=== PATIENT | female | born 1960 | race Caucasian/White ===

== ENCOUNTER 2021-03-15 10:56 | Emergency (ER) | payer OTHER ==
[~2021-03-15 10:56] MED LIST: BACTRIM DS TAB1 EACH PO; CENTRUM SILVER1 EAC1 PO; CYMBALTA 30MG C30 MG PO; CYMBALTA20 M1 PO; D-AMPHETAMINE PO; FOLIC ACID1 MG PO; INDERAL20 MG PO; LEVSIN-SL0.125 MG SL; PERCOCET 5-3251 EACH PO; PRINIVIL10 MG PO; PROTONIX 40MG T40 MG PO; PROZAC20 MG PO; ZANTAC150 MG PO
[2021-03-15] MEDS ORDERED: NORCO 5-325 TA1 EACH PO (11:46)
[2021-03-15] MEDS ORDERED: CEPHALEXIN500 MG PO (11:46)
[2021-03-15] MEDS ORDERED: BACTROBAN NASAL1 GM TOP (11:46)
[2021-03-16] MEDS ORDERED: BUPROPION XL300 MG PO (14:27)
[2021-03-16] MEDS ORDERED: DULOXETINE HCL60 MG PO (14:27)
[2021-03-20] MEDS ORDERED: PERCOCET 5-3251 EACH PO (06:57)
== END 2021-03-15 12:10 | disposition home or self-care (01) ==
LOC: FER 10:56
DX: S61.412A Laceration without foreign body of left hand, initial encounter (principal); I10 Essential (primary) hypertension; K21.9 Gastro-esophageal reflux disease without esophagitis; Z23 Encounter for immunization; Z79.899 Other long term (current) drug therapy; W26.0XXA Contact with knife, initial encounter; Y92.009 Unspecified place in unspecified non-institutional (private) residence as the place of occurrence of the external cause
CPT/HCPCS: 90471; 90715

== ENCOUNTER → 2021-03-20 | Day surgery (SDC) | payer OTHER ==
[~2021-03-20] VITALS: Ht 152.4 cm; Wt 57.8 kg
[~2021-03-20] MED LIST changes: +BACTROBAN NASAL1 GM TOP; +BUPROPION XL300 MG PO; +CEPHALEXIN500 MG PO; +DULOXETINE HCL60 MG PO; +NORCO 5-325 TA1 EACH PO
[2021-03-20 11:26] LABS: CREATININE 0.8 mg/dL (0.51-0.95); POTASSIUM 4.8 mmol/L (3.5-5.1)
== END | disposition home or self-care (01) ==
LOC: FAS 10:35
PROVIDERS: Anesthesiology
DX: M65.841 Other synovitis and tenosynovitis, right hand (principal); M65.331 Trigger finger, right middle finger; M65.341 Trigger finger, right ring finger; I10 Essential (primary) hypertension; K59.00 Constipation, unspecified; K21.9 Gastro-esophageal reflux disease without esophagitis; F32.9 Major depressive disorder, single episode, unspecified
CPT/HCPCS: 36415; 80048; J1100; J1885; J2250; J2405; J2704; J3010; J7120

== ENCOUNTER → 2021-06-28 | Day surgery (SDC) | payer OTHER ==
[~2021-06-28] VITALS: Ht 154.9 cm; Wt 57.8 kg
[~2021-06-28] MED LIST changes: +one a day vitamin PO
[2021-06-28 08:13] LABS: HCT 46.8 % (37.0-47.0); HGB 15.3 g/dl (12.5-16.0); MCH 30.6 pg (25.0-31.0); MCHC 32.7 g/dL (32.0-36.0); MCV 93.6 fL (78.0-100.0); MPV 9.7 fL (6.0-9.5); RDW 12.7 % (11.5-14.0); WBC 4.1 K/uL (4.0-10.5)
[2021-06-28 08:32] LABS: ALBUMIN 4.4 g/dL (3.4-5.0); BILIRUBIN - TOTAL 0.4 mg/dL (0.2-1.0); BUN/CREAT RATIO (CALC) 24.7 RATIO; CREATININE 0.81 mg/dL (0.51-0.95); GLOBULIN (CALCULATION) 3.3 g/dL; TOTAL PROTEIN 7.7 g/dL (6.4-8.2)
== END | disposition home or self-care (01) ==
LOC: FAS 07:41
PROVIDERS: Surgery
DX: K29.80 Duodenitis without bleeding (principal); Z15.09 Genetic susceptibility to other malignant neoplasm; F90.9 Attention-deficit hyperactivity disorder, unspecified type; Z79.899 Other long term (current) drug therapy; Z86.010 Personal history of colon polyps; Z90.710 Acquired absence of both cervix and uterus
CPT/HCPCS: 36415; 80053; J7120